=== PATIENT | male | born 1980 | race African-American/Black ===

== ENCOUNTER 2019-06-05 08:02 | Observation (INO) ==
[2019-06-05] MEDS ORDERED: ONDANSETRON 4 MG/2 ML VIAL IV STA (09:32)
[2019-06-05 10:28] LABS: Basophils % 0.5 % (0.0-0.8); Eosinophils # 0.1 10*3/uL (0.0-0.87); Eosinophils % 0.8 % (0.00-10.9); Hematocrit 24.4 VOL% (42.0-52.0); Hemoglobin 7.2 GM/DL (14.0-18.0); Immature Granulocytes % 0.5 %; Immature Granulocytes Absolute 0.04 #; Lymphocytes # 0.8 10*3/uL (1.4-4.0); Lymphocytes % 9.4 % (21.2-54.2); Mean Corpuscular HGB Conc 29.5 GM/DL (32-36); Mean Corpuscular Volume 78.2 FL (87-102); Mean Platelet Volume 9.1 FL (9.6-12.0); Monocytes % 2.5 % (1.7-12.7); Neutrophils % 86.3 % (38.7-73.9); Platelet Count 451 T/CUMM (130-400); Red Blood Count 3.12 MC/CUMM (3.8-5.5); Red Cell Distribution Width 17.2 % (9.3-17.3); White Blood Count 8.7 T/CUMM (4-12)
[2019-06-05 10:34] LABS: Apearance,Urine CLEAR (Clear); Bilirubin,Urine Negative (Negative); Blood, Urine Negative (Negative); Glucose,Urine (UA) Negative (Negative); Ketones,Urine Negative (Negative); Mucus,Urine Occasional /LPF (Occasional); Nitrite,Urine Negative (Negative); Protein,Urine Negative; Squamous Epithelial Cell,Urine Occasional /HPF (0-10); Urine Color Yellow (Yellow); Urine Specific Gravity 1.013 (1.001-1.035); Urine Urobilinogen < 2.0 EU/DL (0.2-1.0); WBC,Urine 2 /HPF (0-6)
[2019-06-05 10:37] LABS: PT Patient Result 11.1 SECS (9.6-12.2)
[2019-06-05 10:45] LABS: Barbiturates Screen,Urine Negative (Negative); Benzodiazepines Screen,Urine Negative (Negative); Cannabinoid Screen,Urine Positive (Negative); Opiate Screen,Urine Negative (Negative); Phencyclidine Screen,Urine Negative (Negative)
[2019-06-05 10:47] LABS: Alanine Aminotransferase < 9 U/L (16-61); Albumin 2.4 G/DL (3.4-5.0); Alkaline Phosphatase 82 U/L (45-117); Aspartate Amino Transferase 10 U/L (0-37); Bilirubin,Total < 0.39 MG/DL (0.2-1.0); Blood Urea Nitrogen 11 MG/DL (7-18); Calcium 8.3 MG/DL (8.5-10.1); Estimated Glom Filtration Rate 154 ML/MIN; Glucose 86 MG/DL (74-106); Total Protein 11.7 G/DL (6.4-8.3)
[2019-06-05] MEDS ORDERED: BISACODYL 5 MG TABLET PO PRN (11:36)
[2019-06-05] MEDS ORDERED: ONDANSETRON 4 MG/2 ML VIAL IV PRN (11:36)
[2019-06-05] MEDS ORDERED: LORazepam 2 MG/1 ML VIAL IV PRN (11:36)
[2019-06-05] MEDS ORDERED: NICOTINE 21 MG/24 HR PATCH TRANSDERM PRN (11:36)
[2019-06-05] MEDS ORDERED: SODIUM CHLORIDE 0.9% 1,000 ML IV PRN (11:39)
[2019-06-05 11:57] LABS: % Iron Saturation 6.3 % (18-50)
[2019-06-05 13:05] LABS: Folate 6.4 NG/ML (5.4-24.0)
[2019-06-05] MEDS: MULTIVITAMIN (CENTRUM) TABLET PO SCH (15:08)
[2019-06-05] MEDS: FOLIC ACID 1 MG TABLET PO SCH (15:08)
[2019-06-05] MEDS: PANTOPRAZOLE 40 MG TABLET PO SCH ×2 (15:09→21:16)
[2019-06-05] MEDS: THIAMINE 200 MG/2 ML VIAL IV SCH (17:49)
[2019-06-05] MEDS: ACETAMINOPHEN 325 MG TABLET PO PRN (19:58)
[2019-06-05] MEDS: CLOBETASOL 0.05% OINT 15 GM TUBE TOP SCH (21:38)
[2019-06-05 22:04] LABS: Hematocrit 28.1 VOL% (42.0-52.0); Hemoglobin 8.7 GM/DL (14.0-18.0)
[2019-06-06 05:53] LABS: Basophils % 0.5 % (0.0-0.8); Eosinophils # 0.1 10*3/uL (0.0-0.87); Eosinophils % 1.6 % (0.00-10.9); Hematocrit 26.1 VOL% (42.0-52.0); Hemoglobin 7.9 GM/DL (14.0-18.0); Immature Granulocytes % 0.5 %; Immature Granulocytes Absolute 0.04 #; Lymphocytes # 2.2 10*3/uL (1.4-4.0); Lymphocytes % 24.9 % (21.2-54.2); Mean Corpuscular HGB Conc 30.3 GM/DL (32-36); Mean Corpuscular Volume 78.6 FL (87-102); Mean Platelet Volume 9.5 FL (9.6-12.0); Monocytes % 7.4 % (1.7-12.7); Neutrophils % 65.1 % (38.7-73.9); Platelet Count 438 T/CUMM (130-400); Red Blood Count 3.32 MC/CUMM (3.8-5.5); Red Cell Distribution Width 17.2 % (9.3-17.3); White Blood Count 8.6 T/CUMM (4-12)
[2019-06-06] MEDS ORDERED: SODIUM CHLORIDE 0.9% 1,000 ML IV PRN (09:07)
[2019-06-06] MEDS: PANTOPRAZOLE 40 MG TABLET PO SCH (09:19)
[2019-06-06] MEDS: MULTIVITAMIN (CENTRUM) TABLET PO SCH (09:19)
[2019-06-06] MEDS: FOLIC ACID 1 MG TABLET PO SCH (09:19)
[2019-06-06] MEDS: THIAMINE 200 MG/2 ML VIAL IV SCH (09:21)
[2019-06-06] MEDS: ACETAMINOPHEN 325 MG TABLET PO PRN (09:49)
[2019-06-06] MEDS: CLOBETASOL 0.05% OINT 15 GM TUBE TOP SCH (11:36)
[2019-06-06 14:37] VITALS: BP 134/88
== END 2019-06-06 15:16 | disposition home or self-care (01) ==
LOC: N.EDINP 08:02 → N.ED 08:02 → SUATTDRO 11:36 → N.EDINP 13:11 → N.2W 13:25
PROVIDERS: ADMIT Internal Medicine; ATTEND Internal Medicine